=== PATIENT | male | born 1995 | race Caucasian/White ===

== ENCOUNTER → 2022-03-10 00:01 | Outpatient (BNVA) | payer OTHER, SELFPAY | PROVIDERS: Family Provider Nurse Practitioner Family; PCP Nurse Practitioner Family; Visit Provider Nurse Practitioner | DX: Z20.822 Contact with and (suspected) exposure to COVID-19 (principal); J02.9 Acute pharyngitis, unspecified | CPT/HCPCS: 87635 ==

== ENCOUNTER → 2023-11-30 10:35 | Outpatient (BNVA) | payer OTHER, SELFPAY | PROVIDERS: Family Provider Nurse Practitioner Family; PCP Nurse Practitioner Family; Visit Provider Nurse Practitioner Family | DX: R51.9 Headache, unspecified (principal); M54.2 Cervicalgia; Z79.899 Other long term (current) drug therapy; Z13.6 Encounter for screening for cardiovascular disorders; G89.29 Other chronic pain; Z86.19 Personal history of other infectious and parasitic diseases; R61 Generalized hyperhidrosis | CPT/HCPCS: 80053; 80061; 81003; 83036; 84443; 85025 ==

== ENCOUNTER 2023-12-13 12:04 | Outpatient (CLI) | payer OTHER, SELFPAY ==
--- NOTE | 2023-12-13 12:09 | XRR_ITS ---
PROCEDURE INFORMATION: Exam: XR Cervical Spine Exam date and time: 12/13/2023 12:20 PM Age: 28 years old Clinical indication: Pain; Patient HX: Headaches for 5 years; Additional info: R51.9 - headache, unspecified TECHNIQUE: Imaging protocol: Radiologic exam of the cervical spine. Views: 6 or more views. COMPARISON: No relevant prior studies available. FINDINGS: Bones/joints: Normal. No acute fracture. Normal alignment. No abnormal motion with flexion or extension. Soft tissues: Unremarkable. XR/XR cervical spine min 6V 72047 IMPRESSION: No acute findings.
== END 2023-12-13 12:05 | disposition home or self-care (01) ==
LOC: RAD 12:05
PROVIDERS: PCP Nurse Practitioner Family; Visit Provider Nurse Practitioner Family
DX: R51.9 Headache, unspecified (principal); M54.2 Cervicalgia; R31.9 Hematuria, unspecified
CPT/HCPCS: 72052; 81003; 87086; 88112

== ENCOUNTER → 2024-05-21 11:23 | Outpatient (BNVA) | payer OTHER, SELFPAY | PROVIDERS: PCP Nurse Practitioner Family; Visit Provider Nurse Practitioner Family | DX: K52.9 Noninfective gastroenteritis and colitis, unspecified (principal); R15.2 Fecal urgency | CPT/HCPCS: 82784; 83516 ==

== ENCOUNTER → 2024-05-26 09:20 | Outpatient (BNVA) | payer OTHER, SELFPAY | PROVIDERS: PCP Nurse Practitioner Family; Visit Provider Nurse Practitioner Family | DX: K52.9 Noninfective gastroenteritis and colitis, unspecified (principal); R15.2 Fecal urgency | CPT/HCPCS: 83630; 87177; 87209; 87328; 87329 ==

== ENCOUNTER 2024-09-01 08:32 | Day surgery (SDC) | payer OTHER, SELFPAY ==
[2024-09-01 08:48] VITALS: BMI 24.7
[2024-09-01] MEDS: sodium chloride 0.9% 500 ML 15 ML IV (09:05)
--- NOTE | 2024-09-01 09:05 | ANES.PREANE2 ---
Pre-Anesthetic Assessment Height/Weight: Height 1.75 m Weight 76.204 kg Preop Diagnosis: Fecal Incontinence Operation Date: 09/01/24 09:30 Proposed Procedures p Colonoscopy- 83222, G0105, R15.9(Not Applicable) - Momo Ruiz MD Familial anesthetic complications: none Was Beta Brendan taken within 24 hours: N/A Was Clonidine taken within 24 hours: N/A Last intake: Intake Last Liquid Date 08/31/24 Last Liquid Time 22:00 Last Solid Date 08/30/24 Last Solid Time 17:30 Social No alcohol and No tobacco Exam alert, oriented x 3, clear to auscultation bilaterally and regular rate & rhythm Airway Submandibular: within normal limits Cervical ROM: within normal limits Mallampati: Class II Dentition: full Comments: Comments: bearded Pulmonary None reported CV/HEM None reported None reported Hepatic None reported GI None reported Metabolic None reported Musc/skel None reported Neuropsych None reported Anesthetic Plan ASA status: 1 Anesthesia: MAC Medications/Allergies Home Medications Medication Instructions Recorded Confirmed Last Taken Type ketoconazole 2 % shampoo 1 applic topical PRN tinea 08/28/24 09/01/24 08/28/24 History versicolor ketoconazole 2 % topical cream 1 applic topical PRN 09/01/24 09/01/24 08/28/24 History Allergies Allergy/AdvReac Type Severity Reaction Status Date / Time No Known Allergies Allergy Verified 08/28/24 08:16 [facility] Anesthesia Medical History Incontinence of feces Chronic diarrhea Tick bite Fecal urgency Frequent stools Tinea versicolor Hyperhidrosis History of Lyme disease Medication management Cervical spine pain Headache Nasal dryness Environmental and seasonal allergies Social History Smoking and tobacco/nicotine status: never used tobacco/nicotine Second hand smoke exposure: No Alcohol intake: never Substance/Drug Use: never Current occupation: Heating cooling worker Data Anesthesia Cardiac Studies: No Data to Display
[2024-09-01 09:06] VITALS: BP 131/80; PULSE 79; RESP 16; TEMP 36.6; O2SAT 98
--- NOTE | 2024-09-01 09:13 | W.PM.OPSFHP ---
Same Day Surgery H&P Indication for Procedure/HPI DATE OF PROCEDURE: September 01, 2024 CHIEF COMPLAINT/INDICATIONFOR SURGICAL PROCEDURE: fecal incontinence PREOP DIAGNOSIS: Fecal Incontinence PLANNED PROCEDURE: Operation Date: 09/01/24 09:30 Proposed Procedures p Colonoscopy- 71902, G0105, R15.9(Not Applicable) - Momo Ruiz MD Medications/Allergies* Home Medications Medication Instructions Recorded Confirmed Type ketoconazole 2 % shampoo 1 applic topical PRN tinea 08/28/24 09/01/24 History versicolor ketoconazole 2 % topical cream 1 applic topical PRN 09/01/24 09/01/24 History Allergies/Adverse Reactions Allergy/AdvReac Type Severity Reaction Status Date / Time No Known Allergies Allergy Verified 08/28/24 08:16 Current Medications: Generic Name Dose Route Start Last Admin Trade Name Freq PRN Reason Stop Dose Admin Sodium Chloride 500 mls @ 15 mls/hr 09/01/24 08:37 09/01/24 09:05 Sodium Chloride 0.9% IV 09/02/24 08:36 15 mls/hr .Q24H PRN Administration COLONOSCOPY FLUIDS Pertinent History/Comorbid Conditions* Medical History (Updated 06/15/24 @ 20:15 by CARIE Black) Incontinence of feces Chronic diarrhea Tick bite Fecal urgency Frequent stools Tinea versicolor Hyperhidrosis History of Lyme disease Medication management Cervical spine pain Headache Nasal dryness Environmental and seasonal allergies Social History Smoking and tobacco/nicotine status: never used tobacco/nicotine Second hand smoke exposure: No Alcohol intake: never Substance/Drug Use: never Current occupation: Heating cooling worker Pertinent Exam Findings alert, oriented x 3, clear to auscultation bilaterally and regular rate & rhythm abdomen soft, nt, nd Recommendations Surgery/Procedure today Coding Level of Care Code Acute Code for Chg Fwd
[2024-09-01 09:31] VITALS: BP 115/78; PULSE 106; RESP 20; TEMP 36.2; O2SAT 97
[2024-09-01 09:36] VITALS: BP 114/80; PULSE 91; RESP 18; O2SAT 95
[2024-09-01 09:46] VITALS: BP 121/88; PULSE 74; RESP 20; O2SAT 96
--- NOTE | 2024-09-01 10:17 | ANE.PACU2 ---
Inpatient post-anesthesia follow up: Airway intact: Yes Vital signs: Temperature 97.1 F Pulse Rate 74 Respiratory Rate 20 Blood Pressure 121/88 Pulse Oximetry 96 Oxygen Delivery Me thod Room Air Oxygen Flow Rate Fraction of Inspir ed Oxygen Hydration adequate: Yes Nausea and vomiting: No Pain level: 1 Mental status: Baseline
== END 2024-09-01 10:17 | disposition home or self-care (01) ==
PROVIDERS: PCP Nurse Practitioner Family; Visit Provider Student in an Organized Health Care Education/Training Program
PROC: 0DJD8ZZ Inspection of Lower Intestinal Tract, Via Natural or Artificial Opening Endoscopic (ICD-10-PCS; CPT 45378; principal; 2024-09-01 09:30)
DX: R15.9 Full incontinence of feces (principal)
CPT/HCPCS: 45378; J2704; J3490; J7040

== ENCOUNTER 2024-10-17 11:47 | Outpatient (CLI) | payer OTHER, SELFPAY ==
--- NOTE | 2024-10-17 12:01 | XR_ITS ---
WS: [id number] Chest 2 views, 10/17/2024 Clinical Data: R05.3 - Chronic cough Comparison: None. Findings: No nodules, masses or effusions are seen. The heart is normal. The pulmonary vascularity is not increased. No pneumonia or pneumothorax is seen. XR/XR chest 2V* [id number] Impression: Negative chest.
== END 2024-10-17 11:48 | disposition home or self-care (01) ==
PROVIDERS: PCP Nurse Practitioner Family; Visit Provider Nurse Practitioner Family
DX: R05.3 Chronic cough (principal)
CPT/HCPCS: 71046

== ENCOUNTER 2025-01-01 17:07 | Inpatient (IN) | payer OTHER, SELFPAY ==
[2025-01-01] VITALS (7 sets, daily range): BP systolic 120–135; BP diastolic 80–90; PULSE 69–83; RESP 14–18; TEMP 36.8–36.9; O2SAT 96–100; BMI 22.8
--- NOTE | 2025-01-01 17:38 | XRR_ITS ---
PROCEDURE INFORMATION: Exam: XR Chest Exam date and time: 01/01/2025 5:38 PM Age: 29 years old Clinical indication: Cough and dyspnea; Additional info: Dyspnea/cough TECHNIQUE: Imaging protocol: Radiologic exam of the chest. Views: 1 view. COMPARISON: CR XR chest 2V* [id number] 10/17/2024 12:11 PM FINDINGS: Lungs: Lungs are clear. Pleural spaces: There is no pleural effusion or pneumothorax. Heart/Mediastinum: Cardiomediastinal contours are unremarkable. Bones/joints: Bones are unremarkable. XR/XR chest 1V portable [id number] IMPRESSION: No acute findings.
--- NOTE | 2025-01-01 17:42 | ED_ITS ---
Documented by User: Neal Loya DO 01/02/25 09:42 HPI - General Adult 2 General: Chief complaint: General Medical Stated complaint: muscle extertion Time Seen by Provider: 01/01/25 17:37 History of Present Illness: 29-year-old male who presents to the [facility] with complaints of dizziness nausea generally not feeling well feeling very achy particularly in his arms but in general all over. 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 Additionally he notes extreme weakness particularly in his arms. No major medical problems in the past he has not used large numbers of NSAIDs. He denies any hematemesis or coffee-ground emesis. No estefanía hematuria. No injury or trauma recently. Associated symptoms: Deny chest pain, dyspnea or rash Related Data Home Medications ?Medication ?Instructions ?Recorded ?Confirmed No Known Home Medications 01/02/2512/18 Allergies Allergy/AdvReac Type Severity Reaction Status Date / Time No Known Allergies Allergy Verified 10/17/24 08:47 Review of Systems 2 Const: Denies: fever(s) or chills Card: Denies: chest pain Resp: Denies: dyspnea GI: Denies: abdominal pain : Denies: dysuria, urinary frequency or urinary urgency Musc: Reports: muscle cramps and muscle weakness; Denies: neck pain or back pain Skin/Breast: Denies: rash PFSH ED 2 PFSH: Medical History Chronic cough Cough Incontinence of feces Chronic diarrhea Tick bite Fecal urgency Frequent stools Tinea versicolor Hyperhidrosis History of Lyme disease Medication management Cervical spine pain Headache Nasal dryness Environmental and seasonal allergies Social History Smoking and tobacco/nicotine status: never used tobacco/nicotine Second hand smoke exposure: No Alcohol intake: never Substance/Drug Use: never Current occupation: Heating cooling worker Physical Exam 2 Const: GENERAL APPEARANCE: cooperative ORIENTATION/CONSCIOUSNESS: Yes awake, Yes oriented to person, Yes oriented to place and Yes oriented to time HENMT: COMMON NORMALS: normocephalic, atraumatic and hearing grossly normal bilaterally HEAD & SCALP: normocephalic and atraumatic Resp: COMMON NORMALS: normal respiratory effort, No retractions, No use of accessory muscles and clear to auscultation bilaterally AUSCULTATION: clear to auscultation bilaterally Cardio: COMMON NORMALS: regular rate, regular rhythm and No murmurs present (Cardio) RATE: regular rate RHYTHM: regular rhythm GI: COMMON NORMALS: Soft to palpation and No hepatosplenomegaly present A USCULTATION: Yes normoactive bowel sounds PALPATION: Yes Soft to palpation, No Tenderness to palpation present (GI), No Guarding due to palpation present (GI) and Yes No hepatosplenomegaly present Extremity: COMMON NORMALS: normal to inspection, capillary refill normal, no clubbing, cyanosis or edema, no calf tenderness and no pedal edema Neuro: SENSORIUM/ORIENTATION: Yes oriented to person, Yes oriented to place and Yes oriented to time Skin: COMMON NORMALS: no rashes or lesions noted GENERAL SKIN EXAM: no rashes or lesions noted Course 2 Vital Signs: Vital signs: Vital Signs Temperature 97.8 F 01/02/25 07:56 Pulse Rate 79 01/02/25 07:56 Respiratory Rate 17 01/02/25 07:56 Blood Pressure 115/74 01/02/25 07:56 Pulse Oximetry 99 01/02/25 07:56 Oxygen Delivery Az th Room Air 01/02/25 07:56 MDM - General Adult Medical Decision Making Care signed out to Dr. Silva at change of shift. See final notes for diagnosis and disposition. Patient care transitioned to oh at shift change. Awaiting lab work. Chest x- ray was negative. No leukocytosis. No anemia. No renal failure. BUN and creatinine are 14 and 0.9. Liver enzymes are elevated at 920 and 269. CK is greater than 37,000. Transaminitis likely secondary to the rhabdomyolysis. Consultation: I spoke with Dr. Hill with nephrology who is consulting on the patient. He recommends after the 2 L normal saline in the emergency room starting at 250 mL/h bicarb drip and giving 20 mg of IV Lasix. Consultation: I spoke with Dr. Hurst who agrees to admission. We are going to admit to the stepdown. Assessment and plan: Rhabdomyolysis Transaminitis ?2 L normal saline bolus and 20 mg IV Lasix in the emergency room -I discussed the patient with the hospitalist on-call who is admitting the patient. - Discussed findings and plan with patient. Answered any questions. - All laboratory values were reviewed and interpreted personally by myself, the ER physician - All imaging was reviewed and interpreted personally by myself, the ER physician. - Evaluation and treatment of this problem were appropriate in the emergency setting Lab Data 01/02/25 03:53 01/02/25 03:53 Radiology Impressions Chest X-Ray 01/01/25 17:38 IMPRESSION: No acute findings. Laboratory Results WBC 7.08 10^3/uL (3.29-11.43) 01/01/25 17:33 RBC 5.15 10^6/uL (3.85-5.65) 01/01/25 17:33 Hgb 16.40 g/dL (11.27-16.99) 01/01/25 17:33 Hct 45.1 % (37-53) 01/01/25 17:33 MCV 87.6 fl (82-101) 01/01/25 17:33 MCH 31.8 pg (27-33) 01/01/25 17:33 MCHC 36.4 g/dL (30-55) 01/01/25 17:33 RDW 11.1 % (12.1-15.1) L 01/01/25 17:33 Plt Count 268 10^3/cmm (157-399) 01/01/25 17:33 MPV 9.6 fL (7.4-10.4) 01/01/25 17:33 Neut % (Auto) 45.0 % 01/01/25 17:33 Lymph % (Auto) 34.9 % 01/01/25 17:33 [place] % (Auto) 18.9 % 01/01/25 17:33 Eos % (Auto) 0.7 % 01/01/25 17:33 Baso % (Auto) 0.4 % 01/01/25 17:33 Neut # (Auto) 3.18 10^3/uL (1.8-7.7) 01/01/25 17:33 Lymph # (Auto) 2.5 10^3/uL (0.8-4.8) 01/01/25 17:33 [place] # (Auto) 1.3 10^3/uL (0.2-0.9) H 01/01/25 17:33 Eos # (Auto) 0.1 10^3/uL (0.0-0.8) 01/01/25 17:33 Baso # (Auto) 0.0 10^3/uL (0.0-0.1) 01/01/25 17:33 Nucleated RBC % (auto) 0 % 01/01/25 17:33 Nucleated RBCs # 0.0 /100WBC 01/01/25 17:33 PT 12.90 SECONDS (12.1-14.9) 01/01/25 17:33 INR 0.91 (0.8-1.2) 01/01/25 17:33 APTT 32.4 SECONDS (23.9-36.7) 01/01/25 17:33 Sodium 139 mmol/L (136-145) 01/01/25 17:33 Potassium 3.6 mmol/L (3.5-5.1) 01/01/25 17:33 Chloride 100 mmol/L (98-107) 01/01/25 17:33 Carbon Dioxide 24 mmol/L (22-29) 01/01/25 17:33 Anion Gap 18.6 (5-19) 01/01/25 17:33 BUN 14 mg/dL (6-20) 01/01/25 17:33 Creatinine 0.9 mg/dL (0.7-1.2) 01/01/25 17:33 GFR Calculation 99.1 mL/min (90-130) 01/01/25 17:33 Glucose 86 mg/dL (65-115) 01/01/25 17:33 Calculated Osmolality 288 mOsm/kg (285-295) 01/01/25 17:33 Calcium 9.1 mg/dL (8.5-10.5) 01/01/25 17:33 Total Bilirubin 0.4 mg/dL (0.15-1.2) 01/01/25 17:33 AST 920 U/L (0-40) H 01/01/25 17:33 ALT 269 U/L (0-41) H 01/01/25 17:33 Alkaline Phosphatase 61 U/L (40-130) 01/01/25 17:33 Creatine Kinase > 42316 U/L (39-308) H* 01/01/25 17:33 Total Protein 7.6 g/dL (6.6-8.7) 01/01/25 17:33 Albumin 4.7 g/dL (3.5-5.2) 01/01/25 17:33 Globulin 2.9 g/dL (1.3-4.6) 01/01/25 17:33 Urine Color Yellow (Yellow) 01/01/25 17:31 Urine Appearance Clear (CLEAR) 01/01/25 17:31 Urine pH Not Reportable 01/01/25 17:31 Ur Specific [place] Not Reportable 01/01/25 17:31 Urine Protein Not Reportable 01/01/25 17:31 Urine Glucose (UA) Not Reportable 01/01/25 17:31 Urine Ketones Not Reportable 01/01/25 17:31 Urine Blood Not Reportable 01/01/25 17:31 Urine Nitrate Not Reportable 01/01/25 17:31 Urine Bilirubin Not Reportable 01/01/25 17:31 Urine Urobilinogen Not Reportable 01/01/25 17:31 Ur Leukocyte Esterase Not Reportable 01/01/25 17:31 Urine RBC None /hpf (0-2) 01/01/25 17:31 Urine WBC None /hpf (0-5) 01/01/25 17:31 Ur Squamous Epith Cells None /hpf (0-5) 01/01/25 17:31 Amorphous Sediment Not Reportable 01/01/25 17:31 Urine Bacteria None /hpf (NONE) 01/01/25 17:31 Urine Mucus None /hpf 01/01/25 17:31 Urine Opiates Screen Negative ng/mL (Negative) 01/01/25 17:31 Ur Barbiturates Screen Negative ng/mL (Negative) 01/01/25 17:31 Ur Phencyclidine Scrn Negative ng/mL (Negative) 01/01/25 17:31 Ur Amphetamines Screen Negative ng/mL (Negative) 01/01/25 17:31 U Benzodiazepines Scrn Negative ng/mL (Negative) 01/01/25 17:31 Urine Cocaine Screen Negative ng/mL (Negative) 01/01/25 17:31 U Marijuana (THC) Screen Negative ng/mL (Negative) 01/01/25 17:31 Discharge Plan Discharge Patient Disposition: Admitted As Inpatient Admit Provider: Reema Hurst Clinical Impression: Rhabdomyolysis, Transaminitis, Dehydration Condition: Stable Coding Level of Care Code ED Furniture Polisher for Mirlande Fwd Documented by User: Estefany Silav MD 01/01/25 19:36 HPI - General Adult 2 General: Chief complaint: General Medical Stated complaint: muscle extertion Time Seen by Provider: 01/01/25 17:37 History of Present Illness: 29-year-old man with no significant past medical issues who presents the emergency room with dizziness, nauseous and fatigue. He noted dark urine. He says that on Sunday he was not urinating as much as he had been. 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 No altered mental status. No fevers. No abdominal pain. Related Data Home Medications ?Medication ?Instructions ?Recorded ?Confirmed No Known Home Medications 01/02/2512/18 Allergies Allergy/AdvReac Type Severity Reaction Status Date / Time No Known Allergies Allergy Verified 10/17/24 08:47 Review of Systems 2 Narrative: Constitutional symptoms: Negative except as documented in HPI. Skin symptoms: Negative except as documented in HPI. Eye symptoms: Negative except as documented in HPI. ENMT symptoms: Negative except as documented in HPI. Respiratory symptoms: Negative except as documented in HPI. Cardiovascular symptoms: Negative except as documented in HPI. Gastrointestinal symptoms: Negative except as documented in HPI. Genitourinary symptoms: Negative except as documented in HPI. Musculoskeletal symptoms: Negative except as documented in HPI. Neurologic symptoms: Negative except as documented in HPI. Psychiatric symptoms: Negative except as documented in HPI. Endocrine symptoms: Negative except as documented in HPI. PFSH ED 2 PFSH: Medical History Chronic cough Cough Incontinence of feces Chronic diarrhea Tick bite Fecal urgency Frequent stools Tinea versicolor Hyperhidrosis History of Lyme disease Medication management Cervical spine pain Headache Nasal dryness Environmental and seasonal allergies Social History Smoking and tobacco/nicotine status: never used tobacco/nicotine Second hand smoke exposure: No Alcohol intake: never Substance/Drug Use: never Current occupation: Heating cooling worker Physical Exam 2 Narrative: EXAM NARRATIVE: General: Alert, no acute distress. Skin: Warm, dry. Head: Normocephalic, atraumatic. Neck: Supple, trachea midline. Eye: Extraocular movements are intact. Ears, nose, mouth and throat: mucosa moist. Cardiovascular: Regular, Normal peripheral perfusion. Respiratory: Lungs are clear to auscultation, respirations are non-labored, breath sounds are equal, Symmetrical chest wall expansion. Gastrointestinal: Soft, Nontender, Non distended Musculoskeletal: Normal ROM, no deformity. Neurological: Alert and oriented, No focal neurological deficit observed. Psychiatric: Cooperative, appropriate mood & affect. Course 2 Vital Signs: Vital signs: Vital Signs Temperature 97.8 F 01/02/25 07:56 Pulse Rate 79 01/02/25 07:56 Respiratory Rate 17 01/02/25 07:56 Blood Pressure 115/74 01/02/25 07:56 Pulse Oximetry 99 01/02/25 07:56 Oxygen Delivery Az thod Room Air 01/02/25 07:56 MDM - General Adult Medical Decision Making Patient care transitioned to oh at shift change. Awaiting lab work. Chest x- ray was negative. No leukocytosis. No anemia. No renal failure. BUN and creatinine are 14 and 0.9. Liver enzymes are elevated at 920 and 269. CK is greater than 37,000. Transaminitis likely secondary to the rhabdomyolysis. Consultation: I spoke with Dr. Hill with nephrology who is consulting on the patient. He recommends after the 2 L normal saline in the emergency room starting at 250 mL/h bicarb drip and giving 20 mg of IV Lasix. Consultation: I spoke with Dr. Hurst who agrees to admission. We are going to admit to the stepdown. Assessment and plan: Rhabdomyolysis Transaminitis ?2 L normal saline bolus and 20 mg IV Lasix in the emergency room -I discussed the patient with the hospitalist on-call who is admitting the patient. - Discussed findings and plan with patient. Answered any questions. - All laboratory values were reviewed and interpreted personally by myself, the ER physician - All imaging was reviewed and interpreted personally by myself, the ER physician. - Evaluation and treatment of this problem were appropriate in the emergency setting Lab Data 01/02/25 03:53 01/02/25 03:53 Radiology Impressions Chest X-Ray 01/01/25 17:38 IMPRESSION: No acute findings. Laboratory Results WBC 7.08 10^3/uL (3.29-11.43) 01/01/25 17:33 RBC 5.15 10^6/uL (3.85-5.65) 01/01/25 17:33 Hgb 16.40 g/dL (11.27-16.99) 01/01/25 17:33 Hct 45.1 % (37-53) 01/01/25 17:33 MCV 87.6 fl (82-101) 01/01/25 17:33 MCH 31.8 pg (27-33) 01/01/25 17: MCHC 36.4 g/dL (30-55) 01/01/25 17:33 RDW 11.1 % (12.1-15.1) L 01/01/25 17:33 Plt Count 268 10^3/cmm (157-399) 01/01/25 17: MPV 9.6 fL (7.4-10.4) 01/01/25 17:33 Neut % (Auto) 45.0 % 01/01/25 17:33 Lymph % (Auto) 34.9 % 01/01/25 17:33 [place] % (Auto) 18.9 % 01/01/25 17:33 Eos % (Auto) 0.7 % 01/01/25 17:33 Baso % (Auto) 0.4 % 01/01/25 17:33 Neut # (Auto) 3.18 10^3/uL (1.8-7.7) 01/01/25 17:33 Lymph # (Auto) 2.5 10^3/uL (0.8-4.8) 01/01/25 17:33 [place] # (Auto) 1.3 10^3/uL (0.2-0.9) H 01/01/25 17:33 Eos # (Auto) 0.1 10^3/uL (0.0-0.8) 01/01/25 17:33 Baso # (Auto) 0.0 10^3/uL (0.0-0.1) 01/01/25 17:33 Nucleated RBC % (auto) 0 % 01/01/25 17:33 Nucleated RBCs # 0.0 /100WBC 01/01/25 17:33 PT 12.90 SECONDS (12.1-14.9) 01/01/25 17:33 INR 0.91 (0.8-1.2) 01/01/25 17:33 APTT 32.4 SECONDS (23.9-36.7) 01/01/25 17:33 Sodium 139 mmol/L (136-145) 01/01/25 17:33 Potassium 3.6 mmol/L (3.5-5.1) 01/01/25 17:33 Chloride 100 mmol/L (98-107) 01/01/25 17:33 Carbon Dioxide 24 mmol/L (22-29) 01/01/25 17:33 Anion Gap 18.6 (5-19) 01/01/25 17:33 BUN 14 mg/dL (6-20) 01/01/25 17:33 Creatinine 0.9 mg/dL (0.7-1.2) 01/01/25 17:33 GFR Calculation 99.1 mL/min (90-130) 01/01/25 17:33 Glucose 86 mg/dL (65-115) 01/01/25 17:33 Calculated Osmolality 288 mOsm/kg (285-295) 01/01/25 17:33 Calcium 9.1 mg/dL (8.5-10.5) 01/01/25 17:33 Total Bilirubin 0.4 mg/dL (0.15-1.2) 01/01/25 17:33 AST 920 U/L (0-40) H 01/01/25 17:33 ALT 269 U/L (0-41) H 01/01/25 17:33 Alkaline Phosphatase 61 U/L (40-130) 01/01/25 17:33 Creatine Kinase > 16506 U/L (39-308) H* 01/01/25 17:33 Total Protein 7.6 g/dL (6.6-8.7) 01/01/25 17:33 Albumin 4.7 g/dL (3.5-5.2) 01/01/25 17:33 Globulin 2.9 g/dL (1.3-4.6) 01/01/25 17:33 Urine Color Yellow (Yellow) 01/01/25 17:31 Urine Appearance Clear (CLEAR) 01/01/25 17:31 Urine pH Not Reportable 01/01/25 17:31 Ur Specific [place] Not Reportable 01/01/25 17:31 Urine Protein Not Reportable 01/01/25 17:31 Urine Glucose (UA) Not Reportable 01/01/25 17:31 Urine Ketones Not Reportable 01/01/25 17:31 Urine Blood Not Reportable 01/01/25 17:31 Urine Nitrate Not Reportable 01/01/25 17:31 Urine Bilirubin Not Reportable 01/01/25 17:31 Urine Urobilinogen Not Reportable 01/01/25 17:31 Ur Leukocyte Esterase Not Reportable 01/01/25 17:31 Urine RBC None /hpf (0-2) 01/01/25 17:31 Urine WBC None /hpf (0-5) 01/01/25 17:31 Ur Squamous Epith Cells None /hpf (0-5) 01/01/25 17:31 Amorphous Sediment Not Reportable 01/01/25 17:31 Urine Bacteria None /hpf (NONE) 01/01/25 17:31 Urine Mucus None /hpf 01/01/25 17:31 Urine Opiates Screen Negative ng/mL (Negative) 01/01/25 17:31 Ur Barbiturates Screen Negative ng/mL (Negative) 01/01/25 17:31 Ur Phencyclidine Scrn Negative ng/mL (Negative) 01/01/25 17:31 Ur Amphetamines Screen Negative ng/mL (Negative) 01/01/25 17:31 U Benzodiazepines Scrn Negative ng/mL (Negative) 01/01/25 17:31 Urine Cocaine Screen Negative ng/mL (Negative) 01/01/25 17:31 U Marijuana (THC) Screen Negative ng/mL (Negative) 01/01/25 17:31 All radiology interpretation(s) finalized by discharge Discharge Plan Discharge Patient Disposition: Admitted As Inpatient Admit Provider: Reema Hurst Clinical Impression: Rhabdomyolysis, Transaminitis, Dehydration Condition: Stable Coding Level of Care Code ED Furniture Polisher for Mirlande [place]
--- NOTE | 2025-01-01 17:50 | ECG_ITS ---
[facility]: [facility]01 Pat Name: Mau Quevedo Department: Room: Gender: Male Low Voltage Technician: : 1995 Requested By: Neal Allen Order Number: [id number] Lyle MD: KYLE NASH Measurements Intervals [place] Rate: 76 P: 52 AK: 193 QRS: 12 QRSD: 80 T: 47 QT: 360 QTc: 407 Interpretive Statements SINUS RHYTHM No previous ECG available for comparison Electronically Signed On 01-01-2025 23:26:35 CDT by KYLE NASH [email or web address]
[2025-01-01 17:51] LABS: Basophils % 0.4 %; Eosinophils # 0.1 10^3/uL (0.0-0.8); Eosinophils % 0.7 %; Hematocrit 45.1 % (37-53); Lymphocytes # 2.5 10^3/uL (0.8-4.8); Lymphocytes % 34.9 %; Mean Corpuscular HGB Conc 36.4 g/dL (30-55); Mean Corpuscular Hemoglobin 31.8 pg (27-33); Mean Corpuscular Volume 87.6 fl (82-101); Mean Platelet Volume 9.6 fL (7.4-10.4); Monocytes # 1.3 10^3/uL (0.2-0.9); Monocytes % 18.9 %; Neutrophils # 3.18 10^3/uL (1.8-7.7); Nucleated Red Blood Cells % 0 %; Platelet Count 268 10^3/cmm (157-399); Red Blood Count 5.15 10^6/uL (3.85-5.65); Red Cell Distribution Width 11.1 % (12.1-15.1); White Blood Count 7.08 10^3/uL (3.29-11.43)
[2025-01-01] MEDS: sodium chloride 0.9% 1,000 ML 999 ML IV ×2 (17:57→19:43)
[2025-01-01 18:01] LABS: Add Urine Microscopic? YES; Urine Appearance Clear (CLEAR); Urine Color Yellow (Yellow)
[2025-01-01 18:03] LABS: Add Urine Culture? No
[2025-01-01 18:13] LABS: Alanine Aminotransferase 269 U/L (0-41); Albumin Level 4.7 g/dL (3.5-5.2); Alkaline Phosphatase 61 U/L (40-130); Anion Gap 18.6 (5-19); Blood Urea Nitrogen 14 mg/dL (6-20); Calcium 9.1 mg/dL (8.5-10.5); Carbon Dioxide 24 mmol/L (22-29); Chloride 100 mmol/L (98-107); Globulin 2.9 g/dL (1.3-4.6); Glomerular Filtration Rate 99.1 mL/min (90-130); Glucose 86 mg/dL (65-115); Osmolality Calculated 288 mOsm/kg (285-295); Potassium 3.6 mmol/L (3.5-5.1); Sodium 139 mmol/L (136-145); Total Bilirubin 0.4 mg/dL (0.15-1.2); Total Protein 7.6 g/dL (6.6-8.7)
[2025-01-01 18:56] LABS: Aspartate Amino Transferase 920 U/L (0-40)
[2025-01-01 18:59] LABS: Creatine Phosphokinase > 37618 U/L (39-308)
--- NOTE | 2025-01-01 19:36 | PM.HP ---
Providers/Chief Complaint Admitting Physician: Reema Hurst I Primary Care Provider: CAIRE Hooker Chief Complaint: muscle extertion History of Present Illness Mau Quevedo is a 29 year old male w/ no past medical history who presents to the ED today 01/01/2025 w/ complaints of b/l arm & forearm pain, generalized weakness, dizziness, nausea, & brown/tea colored urine, after heavy exercise on 12/29/2024. 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 He Has a beach trip coming up with his family on the weekend of February 20, 2025, and he decided to start getting in shape. He went to the gym on Friday 12/29, and did mostly arm workouts and ran a little over a mile on the treadmill. The patient started feeling is b/l arm and forearm hurt especially when he attempted to extend his arm. The next morning, he felt dizzy,nauseous, generalized weakness, but especially in his arms. Despite drinking a lot of water, he only urinated 2-3times. He also continued to feel the pain and stiffness in his b/l arms, and it was worse. On Sunday, when he urinated, it was brown & tea colored. He went on [employer] and input his symptoms, and [employer] told him that he had Rhadomyolysis. Since he was on the road, he told his immediate passenger car cleaning supervisor about his symptoms, who recommended that he take care of himself. He drove home and presented to the ED. In addition to the aforementioned symptoms, he endorses, chills, light headedness. he complains of b/l lower back pain that worsens towards the end of his urine stream. He denies urinary urgency/frequency, dysuria, hematuria. He denies fever, CP, palpitations, SOB. In the ED, the patient's vital signs were within normal limits. The patient's labs were significant for no leukocytosis, transaminitis, and a CK of >37,000. His UA was negative for UTI or microscopic hematuria, and his UDS was negative. The patient was given 2 L NS bolus in the ED and admitted. Upon accepting the patient, given the level of his rhabdomyolysis, I spoke with the ED physician, about consulting the Rotary Veneer Machine Operator, so the auto radiator specialist was consulted. The auto radiator specialist recommended that the patient be given a 20 mg IV dose of furosemide and that the patient be started on a bicarb drip at 250 cc/h. Review of Systems Const: Reports: chills, body aches and malaise; Denies: fever(s) Eyes: Denies: change in vision ENMT: Reports: ear or mastoid pain (R. ear pain around 5pm today that occurs with swallowing - resolved), nasal discharge (that began on Sunday morning), nasal congestion (that began on Sunday), post nasal drip (worse on the R. side) and other (sore throat, sneezing); Denies: ear discharge Card: Reports: lightheadedness; Denies: chest pain, palpitations or syncope Resp: Denies: dyspnea, productive cough, non-productive cough or wheezing GI: Reports: nausea; Denies: abdominal pain, vomiting, diarrhea, constipation, hematochezia or melena : Reports: difficulty urinating, dysuria and urinary hesitancy; Denies: urinary frequency or urinary urgency Musc: Reports: other (myalgias in the b/l arms and forearms, b/l lower back) Skin/Breast: Denies: rash or new lesions Neuro: Reports: dizziness; Denies: headache(s) Psych: Denies: anxiety, depression, auditory hallucinations, suicidal ideation or homicidal ideation Endo: Denies: cold intolerance or heat intolerance Chas/Lymph: Reports: other (hx of epistaxis); Denies: easy bruising or easy bleeding Medications/Allergies Home Medications ?Medication ?Instructions ?Recorded ?Confirmed ?Last Taken ?Type cetirizine 10 mg tablet (All Day 10 mg PO DAILY 30 days #30 tabs 09/19/24 10/17/24 Unknown Rx Allergy (cetirizine)) famotidine 20 mg tablet (Pepcid) 20 mg PO DAILY 30 days #30 tabs 09/23/24 10/17/24 Unknown Rx benzonatate 100 mg capsule 100 mg PO TID #60 caps 10/04/24 10/17/24 Unknown Rx albuterol sulfate 90 mcg/actuation 1 inh inhalation Q4H PRN shortness 10/17/24 10/17/24 Unknown Rx aerosol inhaler (Ventolin HFA) of breath or wheezing #8.5 grams azithromycin 250 mg tablet See Rx Instructions PO .COMPLEX #6 10/17/24 10/17/24 Unknown Rx tabs pseudoephedrine HCl 30 mg tablet 30 mg PO Q6H PRN nasal congestion 10/17/24 10/17/24 Unknown Rx (Sudafed) 15 days #30 tabs Allergies Allergy/AdvReac Type Severity Reaction Status Date / Time No Known Allergies Allergy Verified 10/17/24 08:47 PFSH Acute PFSH: Medical History (Updated 01/02/25 @ 00:12 by Reema Hurst MD) Chronic cough Cough Incontinence of feces Chronic diarrhea Tick bite Fecal urgency Frequent stools Tinea versicolor Hyperhidrosis History of Lyme disease Medication management Cervical spine pain Headache Nasal dryness Environmental and seasonal allergies Social History Smoking and tobacco/nicotine status: never used tobacco/nicotine Second hand smoke exposure: No Alcohol intake: never Substance/Drug Use: never Current occupation: Heating cooling worker Vitals/I&O/Wt Last Vital Signs Temp 98.2 F 01/01/25 17:13 Pulse 69 01/01/25 19:26 Resp 14 01/01/25 19:26 BP 135/83 01/01/25 19:26 Pulse Ox 100 01/01/25 19:26 O2 Del Method Room Air 01/01/25 19:26 Weight last 48 hrs Weight 68.039 kg Physical Exam Const: GENERAL APPEARANCE: cooperative and comfortable ORIENTATION/CONSCIOUSNESS: Yes awake, Yes oriented to person, Yes oriented to place and Yes oriented to time HENMT: HEAD & SCALP: normocephalic and atraumatic NOSE: Normal external nose present EXTERNAL EAR: Yes external ears normal MOUTH: Normal oral and palatal mucosa present THROAT: posterior oropharynx normal Eye: CONJUNCTIVA: Yes conjunctivae normal PUPIL: Yes Equal, round and reactive pupils present EOM: No EOM abnormal Neck/C-Spine: THYROID: Thyroid normal CAROTIDS: No bruit CERVICAL SPINE: Yes cervical ROM normal Lymph: OTHER: no cervical or supraclavicular LAD Resp: OTHER: CTAB w/ no m/r/g Cardio: OTHER: RRR, no m/r/g or clicks, 2+ radial and DP pulses, no carotid bruit appreciated GI: OTHER: BS+, NT, ND, no rigidity, no guarding, no rebound tenderness, or hepatosplenomegaly. Back/Pelvis: OTHER: mild L. lower flank tenderness Extremity: GENERAL: No calf tenderness, No clubbing and No cyanosis Neuro: CRANIAL NERVES: Yes CN normal except as noted SPEECH: speech normal GAIT: Yes Normal gait present MOTOR EXAM: 5/5 motor strength present throughout Psych: APPEARANCE: Yes grossly normal ATTITUDE: Yes calm and Yes engaged ACTIVITY/MOTOR BEHAVIOR: Yes appropriate eye contact SPEECH: Yes normal speech MOOD & AFFECT: Yes euthymic mood THOUGHT PROCESS: Normal thought process present THOUGHT CONTENT: Yes Normal thought content present ATTENTION/CONCENTRATION: Yes attention grossly intact MEMORY/COGNITION: Yes memory grossly intact Skin: GENERAL SKIN EXAM: no rashes or lesions noted Data 01/01/25 17:33 01/01/25 17:33 A&P Assessment and plan (1) Exertional rhabdomyolysis: (2) Transaminitis: Plan Mau Lucero Sae is a 29 year old male w/ no past medical history who presents to the ED today 01/01/2025 w/ complaints of b/l arm & forearm pain, generalized weakness, dizziness, nausea, & brown/tea colored urine, after heavy exercise on 12/29/2024. The patient is being admitted for exertional rhabdomyolysis, with [place] initial CK of >[address]796. # Severe Rhabdomyolysis - s/p 2L NS in the ED. Another 1L NS ordered on admission. - Nephrology consulted - involvement appreciated. F/u studies ordered by [employer]ary Veneer Machine Operator. - Per Nephrology recs, Lasix 20meq IV x 1 and continuous 150mEQ bicarb drip at 250cc/hr ordered. - Pain control w/ Acetamino #Transaminitis: likely due to ischemia from dehydration - Will monitor and order further studies as appropriate. #Possible seasonal Allergies - Benadryl x 1. Loratadine daily ordered. - I attemepted to evaluate his tympanic membranes b/l because given his complaint of a sore throat that resulted in R. sided ear pain whenever he swallowed, but the otoscope was not charged. DVT ppx: Lovenox PDMP PDMP Reviewed: Not Reviewed Attestations Medical Necessity Statement*: The patient will need to be hospitalized for >2 midnights for his severe rhabdomyolysis, requiring the involvement of the auto radiator specialist. I have never seen rhabdomyolysis this severe. Premature discharge endangers the patient. Coding Level of Care Code 28395 High Time for a total of 80 minutes, includes reviewing past or interval history, examining/interviewing patient, placing orders, counseling patient/family/other support, updating patient/family/other support, discussing plan of care with staff, communicating with other healthcare providers, documenting encounter and coordinating care Diagnoses Exertional rhabdomyolysis M62.82 Transaminitis R74.01
[2025-01-01] MEDS: sodium bicarbonate 150 MEQ in dextrose 5% 1,000 ML 250 MEQ IV (19:42)
[2025-01-01 21:01] LABS: INR 0.91 (0.8-1.2)
[2025-01-01 21:02] LABS: Partial Thromboplastin Time 32.4 SECONDS (23.9-36.7)
[2025-01-01 21:17] LABS: Amphetamines Screen Urine Negative (Negative); Barbiturates Screen Urine Negative (Negative); Benzodiazepines Screen Urine Negative (Negative); Cocaine Screen Urine Negative (Negative); Opiate Screen Urine Negative (Negative); PCP Screen Urine Negative (Negative); THC Screen Urine Negative (Negative)
--- NOTE | 2025-01-01 21:35 | P.CONIM_ITS ---
Providers/Reason For Consult 2 Consulting Physician/Specialty*: marni pearce md / telenphrology Reason for Consult*: rhabdomyolysis Requesting Physician: Dr Reema Hurst Attending Physician: Reema Hurst MD Primary Care Provider: CARIE Hooker History of Present Illness History of Present Illness Mau Quevedo is a 29 year old male who exercised on 12/29/24. since then he has muscle weakness and oligurix and brown. he says he drinks fluids okay. no n/v/f/c/gramajo/d/leg pains Review of Systems 2 Narrative: weak, arm pain, dark urine, nausea, headaches. denies NSAID use Medications/Allergies Home Medications ?Medication ?Instructions ?Recorded ?Confirmed ?Last Taken ?Type cetirizine 10 mg tablet (All Day 10 mg PO DAILY 30 day s #30 tabs 09/19/24 10/17/24 Unknown Rx Allergy (cetirizine)) famotidine 20 mg tablet (Pepcid) 20 mg PO DAILY 30 day s #30 tabs 09/23/24 10/17/24 Unknown Rx benzonatate 100 mg capsule 100 mg PO TID #60 caps 09/2010/17/24 Unknown Rx albuterol sulfate 90 mcg/actuation 1 inh inhalation Q4 H PRN shortness 10/17/24 10/17/24 Unknown Rx aerosol inhaler (Ventolin HFA) of breath or wheezing # 8.5 grams azithromycin 250 mg tablet See Rx Instructions PO .COM PLEX #6 10/17/24 10/17/24 Unknown Rx tabs pseudoephedrine HCl 30 mg tablet 30 mg PO Q6H PRN nasa l congestion 10/17/24 10/17/24 Unknown Rx (Sudafed) 15 days #30 tabs Allergies Allergy/AdvReac Type Severity Reaction Status Date / Time No Known Allergies Allergy Verified 10/17/24 08:47 Current Medications Generic Name Dose Route Start Last Admin Trade Name Freq PRN Reason Stop Dose Admin Sodium Bicarbonate 150 meq/ 1,150 mls @ 250 mls/hr 01/01/25 19:32 01/01/25 19:42 Dextrose IV 250 mls/hr .Q4H36M CHRISTOPHER Administration PFSH Acute 2 PFSH: Medical History (Updated 05/15/25 @ 19:36 by Estefany Silva MD) Chronic cough Cough Incontinence of feces Chronic diarrhea Tick bite Fecal urgency Frequent stools Tinea versicolor Hyperhidrosis History of Lyme disease Medication management Cervical spine pain Headache Nasal dryness Environmental and seasonal allergies Social History Smoking and tobacco/nicotine status: never used tobacco/nicotine Second hand smoke exposure: No Alcohol intake: never Substance/Drug Use: never Current occupation: Heating cooling worker Vitals/I&O/Wt Last Vital Signs Temp 98.2 F 01/01/25 17:13 Pulse 77 01/01/25 20:14 Resp 18 01/01/25 20:14 BP 130/81 01/01/25 20:14 Pulse Ox 100 01/01/25 20:14 O2 Del Method Room Air 01/01/25 20:14 01/01/25 01/01/25 01/01/25 06:59 14:59 22:59 Output Total 600 / 600 Balance -600 / -600 Weight last 48 hrs Weight 68.039 kg Physical Exam 2 Narrative: VSS NARD in bed heent- nca/t, eomi neck supple lungs clear heart reg no rub abdomen soft, + bs ext no edema, tender arms neuro a,a, o x3 Data 01/01/25 17:33 01/01/25 17:33 A&P Assessment and plan (1) Rhabdomyolysis: 29 year old man w/ rhabdomyolysis 1. rhabdomyolysis- assumed from sports. Rhabdomyolysis is characterized clinically by the triad of myalgias, muscle weakness, and red to brown urine due to myoglobinuria -monitor for compartment syndrome -he denies substance abuse. will send urine toxicology -he denies using colchicine or statins -Acute viral infections associated with rhabdomyolysis include influenza A and B, coxsackievirus, Loretta-Sherwood, herpes simplex, parainfluenza, adenovirus, echovirus, HIV, and cytomegalovirus. The most common viral etiologies of rhabdomyolysis are influenza and HIV. -Inflammatory myopathies, dermatomyositis and polymyositis can cause rhabdomyolysis recommendation- fluids, if not having UOP of 100 ml/hr then give lasix. replace k. monitor electrolytes every 6 hrs basic serologies, hep c, hiv, hep b ab ordered seen and examined using A/V equipment w/ aide of nurse pt consented to telehealth visit Plan see above PDMP PDMP Reviewed: Not Reviewed Consult Attestations 2 Medical Necessity Statement: symptomatic rhabdomyolysis Time Spent in Patient Care: Greater than 35 minutes (>than 50% of time spent in counselling and/or direct pt care on unit) . Coding Level of Care Code Acute Code for [facility] Diagnoses Rhabdomyolysis M62.82
[2025-01-01] MEDS: sodium chloride 0.9% 1,000 ML 500 ML IV (21:44)
[2025-01-01] MEDS: potassium chloride ER 20 mEq Tablet 40 MEQ PO (22:28)
[2025-01-01] MEDS: FUROsemide 10 mg/mL SDV 2mL 20 MG IVP (22:28)
[2025-01-01] MEDS: enoxaparin 40 mg/0.4 mL Syringe SUBCUT (22:28)
[2025-01-01] MEDS: sennosides 8.6 mg Tablet 17.2 MG PO (22:29)
--- NOTE | 2025-01-01 22:54 | PC.NURSE ---
Per Dr. Hurst pause bicarb drip and finish bolusing the NS.
[2025-01-01 23:40] LABS: Bilirubin Urine Negative (Negative); Blood Urine Negative (Negative); Glucose Urine UA Negative (Normal); Ketones Urine Negative (Negative); Leukocyte Esterase Urine Negative (Negative); Nitrate Urine Negative (Negative); Protein Urine Negative (Negative); Specific Gravity, Urine 1.005 (1.005-1.030); Urine Appearance Clear (CLEAR); Urine Color Yellow (Yellow); Urobilinogen Urine 0.2 mg/dL (Negative); pH Urine 7.5 (5-7)
[2025-01-01 23:45] LABS: Bacteria Urine None Seen /hpf; Hyaline Casts Urine 0-4 /lpf; RBC Urine 0-2 /hpf (0-2); Squamous Epithelial Cell Urine 0-5 /hpf (0-5); WBC Urine 0-5 /hpf (0-5)
[2025-01-01] MEDS: acetaminophen 325 mg Tablet 650 MG PO (23:46)
[2025-01-01] MEDS: diphenhydrAMINE 25 mg Capsule PO (23:46)
[2025-01-02] VITALS (8 sets, daily range): BP systolic 115–135; BP diastolic 68–87; PULSE 71–90; RESP 14–24; TEMP 36.5–37.1; O2SAT 98–99; BMI 24.5
[2025-01-02 00:16] LABS: Alanine Aminotransferase 264 U/L (0-41); Albumin Level 4.5 g/dL (3.5-5.2); Alkaline Phosphatase 62 U/L (40-130); Anion Gap 15.1 (5-19); Blood Urea Nitrogen 9 mg/dL (6-20); Calcium 8.8 mg/dL (8.5-10.5); Carbon Dioxide 28 mmol/L (22-29); Chloride 100 mmol/L (98-107); Creatinine Clr Calc Pharmacy 130.3492; Globulin 3.2 g/dL (1.3-4.6); Glomerular Filtration Rate 113.5 mL/min (90-130); Glucose 98 mg/dL (65-115); Magnesium 1.9 mg/dL (1.7-2.3); Osmolality Calculated 289 mOsm/kg (285-295); Phosphorus 2.6 mg/dL (2.5-4.5); Potassium 3.1 mmol/L (3.5-5.1); Sodium 140 mmol/L (136-145); Total Bilirubin 0.5 mg/dL (0.15-1.2); Total Protein 7.7 g/dL (6.6-8.7)
[2025-01-02 00:18] LABS: Creatinine Urine, Random 7 mg/dL (39-259); Microalbumin Random Urine 1 ug/dL (0-20)
[2025-01-02 00:41] LABS: Aspartate Amino Transferase 900 U/L (0-40)
[2025-01-02 00:41] LABS: Microalbum Creatinine Ratio Ur 143 mg/dL (0-20)
[2025-01-02 01:02] LABS: Creatine Phosphokinase > 32821 U/L (39-308)
[2025-01-02 01:34] LABS: Potassium, Radom Urine 5 mmol/L; Urine Random Chloride 117 mmol/L; Urine Random Sodium 125 mmol/L
[2025-01-02] MEDS: potassium chloride ER 20 mEq Tablet 40 MEQ PO ×2 (03:30→23:51)
[2025-01-02] MEDS: sodium bicarbonate 150 MEQ in dextrose 5% 1,000 ML 250 MEQ IV (03:32)
[2025-01-02 04:04] LABS: Hepatitis C Virus Antibody Non-Reactive (Nonreactive)
[2025-01-02 04:09] LABS: HIV 1 & 2 Antibody Non-Reactive (Non-Reactiv); HIV 1 & 2 Antigen Non-Reactive (Non-Reactiv)
[2025-01-02 04:59] LABS: Basophils % 0.3 %; Eosinophils % 0.5 %; Hematocrit 39.3 % (37-53); Lymphocytes % 30.9 %; Mean Corpuscular HGB Conc 36.1 g/dL (30-55); Mean Corpuscular Hemoglobin 32.3 pg (27-33); Mean Corpuscular Volume 89.3 fl (82-101); Mean Platelet Volume 9.8 fL (7.4-10.4); Monocytes % 15.5 %; Neutrophils % 52.5 %; Nucleated Red Blood Cells % 0 %; Platelet Count 233 10^3/cmm (157-399); Red Cell Distribution Width 11.2 % (12.1-15.1); White Blood Count 6.47 10^3/uL (3.29-11.43)
[2025-01-02 05:09] LABS: INR 0.99 (0.8-1.2)
[2025-01-02 05:10] LABS: Partial Thromboplastin Time 37.9 SECONDS (23.9-36.7)
[2025-01-02 05:20] LABS: Anion Gap 12.7 (5-19); Blood Urea Nitrogen 10 mg/dL (6-20); Calcium 8.8 mg/dL (8.5-10.5); Carbon Dioxide 29 mmol/L (22-29); Chloride 103 mmol/L (98-107); Creatinine Clr Calc Pharmacy 117.9913; Glomerular Filtration Rate 99.1 mL/min (90-130); Glucose 110 mg/dL (65-115); Osmolality Calculated 292 mOsm/kg (285-295); Phosphorus 3.4 mg/dL (2.5-4.5); Potassium 3.7 mmol/L (3.5-5.1); Sodium 141 mmol/L (136-145)
[2025-01-02] MEDS: famotidine 20 mg Tablet PO (06:06)
[2025-01-02 06:51] LABS: Creatine Phosphokinase > 23404 U/L (39-308)
--- NOTE | 2025-01-02 08:19 | PM.PN ---
Subjective Subjective: feels better. dec arm pain. no n/v/f/c/gramajo/d/sob Medications: Reviewed: Yes Medication Review Details: Current Medications Acetaminophen (Acetaminophen 325 Mg Tablet) 650 mg PO Q6H PRN PRN Reason: Mild/Mod Pain Or Temp >/= 101 Last Admin: 01/01/25 23:46 Dose: 650 mg Hydrocodone Bitart/Acetaminophen (Hydrocodone-Acetaminophen 5-325 Mg Tablet) 1 tab PO Q6H PRN PRN Reason: MODERATE PAIN Albuterol/Ipratropium (Ipratropium-Albuterol 3 Ml Neb) 3 ml INHALATION Q6H PRN PRN Reason: SHORTNESS OF BREATH Enoxaparin Sodium (Enoxaparin 40 Mg/0.4 Ml Syringe) 40 mg SUBCUT Q24H [facility] Last Admin: 01/01/25 22:28 Dose: 40 mg Famotidine (Famotidine 20 Mg Tablet) 20 mg PO QAM [facility] Last Admin: 01/02/25 06:06 Dose: 20 mg Sodium Bicarbonate 150 meq/ (Dextrose) 1,150 mls @ 250 mls/hr IV .Q4H36M [facility] Last Admin: 01/02/25 03:32 Dose: 250 mls/hr Potassium Phosphate 40 meq/ (Sodium Chloride) 109.0909 mls @ 27.25 mls/hr IV ONCE ONE Stop: 01/02/25 13:00 Loratadine (Loratadine 10 Mg Tablet) 10 mg PO DAILY [facility] Naloxone HCl (Naloxone 0.4 Mg/Ml Sdv) 0.1 mg IVP Q2M PRN PRN Reason: OPIATERV Ondansetron HCl (Ondansetron 4 Mg Tablet) 4 mg PO Q6H PRN PRN Reason: NAUSEA Ondansetron HCl (Ondansetron 2 Mg/Ml Sdv 2 Ml) 4 mg IVP Q6H PRN PRN Reason: vomiting, or N/V if npo Senna (Sennosides 8.6 Mg Tablet) 17.2 mg PO BEDTIME [facility] Last Admin: 01/01/25 22:29 Dose: 17.2 mg Vitals/I&O/Wt Last Vital Signs Temp 97.8 F 01/02/25 07:56 Pulse 79 01/02/25 07:56 Resp 17 01/02/25 07:56 BP 115/74 01/02/25 07:56 Pulse Ox 99 01/02/25 07:56 O2 Del Method Room Air 01/02/25 07:56 01/01/25 01/02/25 01/02/25 22:59 06:59 14:59 Intake Total 3370.833 / 3370.833 675 / 4045.833 Output Total 1075 / 1075 2975 / 4050 Balance 2295.833 / 2295.833 -2300 / -4.167 Weight last 48 hrs Weight 70.76 kg Weight 71.169 kg Weight 73.113 kg Weight 68.039 kg Physical Exam Narrative: VSS NARD in bed heent- nca/t, eomi neck supple lungs clear heart reg no rub abdomen soft, + bs ext no edema, dec tenderness in arms neuro a,a, o x3 Data 01/02/25 03:53 01/02/25 03:53 A&P Assessment and plan (1) Rhabdomyolysis: 29 year old man w/ rhabdomyolysis 1. rhabdomyolysis- assumed from sports. Rhabdomyolysis is characterized clinically by the triad of myalgias, muscle weakness, and red to brown urine due to myoglobinuria -pt had classic symptoms that appear to be improving -ut tox screen was negative -monitor for compartment syndrome -he denies using colchicine or statins -Acute viral infections associated with rhabdomyolysis include influenza A and B, coxsackievirus, Loretta-Sherwood, herpes simplex, parainfluenza, adenovirus, echovirus, HIV, and cytomegalovirus. The most common viral etiologies of rhabdomyolysis are influenza and HIV. viruses are so far negative -no clinical stmptoms of a virus -rhabdomyolysis in this case is likely due to exercise -Inflammatory myopathies, dermatomyositis and polymyositis can cause rhabdomyolysis recommendation- fluids, if not having UOP of 100 ml/hr then give lasix. check labs q 12 hrs await labs- serologies seen and examined using A/V equipment w/ aide of nurse pt consented to telehealth visit Plan see above PDMP PDMP Reviewed: Not Reviewed Attestations Medical Necessity Statement*: ivf needed for rhabdomyolysis- change to ns Time Spent in Patient Care: 16 - 35 minutes (>than 50% of time spent in counselling and/or direct pt care on unit). Coding Level of Care Code Acute Code for [facility] Diagnoses Rhabdomyolysis M62.82
--- NOTE | 2025-01-02 08:52 | USR_ITS ---
PROCEDURE INFORMATION: Exam: US Abdomen, Limited; Right Upper Quadrant Exam date and time: 01/02/2025 4:29 PM Age: 29 years old Clinical indication: Screening exam; Other: Cirrhosis/hepatitis; Additional info: Assess for hepatitis/cirrhosis, acutely elevated liver enzymes. Ast/alt > 900 TECHNIQUE: Imaging protocol: Real time ultrasound of the abdomen with image documentation. Limited exam focused on the right upper quadrant. COMPARISON: No relevant prior studies available. FINDINGS: Liver: Normal. No masses. Gallbladder: Normal. No gallstones. There is no gallbladder wall thickening. Biliary ducts: Normal. No stones. No dilation. Pancreas: Visualized pancreas is unremarkable. Right kidney: Normal. No mass. No hydronephrosis. US/US liver 19620 IMPRESSION: No acute findings.
[2025-01-02] MEDS: loratadine 10 mg Tablet PO (08:54)
[2025-01-02] MEDS: potassium phosphate (mEq K) 40 MEQ in sodium chloride 0.9% (100 ml) 100 ML 27.25 MEQ IV (08:54)
[2025-01-02] MEDS: sodium chloride 0.9% 1,000 ML 200 ML IV ×4 (08:54→23:54)
[2025-01-02 11:02] LABS: Troponin T (5th) Once < 6 ng/L (0-15)
[2025-01-02 11:03] LABS: Alcohol Level < 10 mg/dL (0-10); Lipase 19 U/L (13-60)
[2025-01-02 11:36] LABS: Hepatitis A Antibody IgM Non-Reactive (Nonreactive); Hepatitis B Core AB, Total Non-Reactive (Nonreactive); Hepatitis B Surface AB 12.6 (11.5-1000); Hepatitis B Surface Antigen Non-Reactive (Nonreactive); Hepatitis C Virus Antibody Non-Reactive (Nonreactive)
--- NOTE | 2025-01-02 14:18 | P.PN_ITS ---
Subjective 2 Subjective: Overnight labs and H&P reviewed. Patient admitted overnight with chief complaints of generalized muscle aches and pains, found to have rhabdomyolysis. States that his pain is improving today. Muscles feel less stiff. Urine is starting to clear up and regain its normal color. Medications: Reviewed: Yes Medication Review Details: Current Medications Acetaminophen (Acetaminophen 325 Mg Tablet) 650 mg PO Q6H PRN PRN Reason: Mild/Mod Pain Or Temp >/= 101 Last Admin: 01/01/25 23:46 Dose: 650 mg Hydrocodone Bitart/Acetaminophen (Hydrocodone-Acetaminophen 5-325 Mg Tablet) 1 tab PO Q6H PRN PRN Reason: MODERATE PAIN Albuterol/Ipratropium (Ipratropium-Albuterol 3 Ml Neb) 3 ml INHALATION Q6H PRN PRN Reason: SHORTNESS OF BREATH Enoxaparin Sodium (Enoxaparin 40 Mg/0.4 Ml Syringe) 40 mg SUBCUT Q24H [facility] Last Admin: 01/01/25 22:28 Dose: 40 mg Famotidine (Famotidine 20 Mg Tablet) 20 mg PO QAM [facility] Last Admin: 01/02/25 06:06 Dose: 20 mg Sodium Bicarbonate 150 meq/ (Dextrose) 1,150 mls @ 250 mls/hr IV .Q4H36M [facility] Last Admin: 01/02/25 03:32 Dose: 250 mls/hr Potassium Phosphate 40 meq/ (Sodium Chloride) 109.0909 mls @ 27.25 mls/hr IV ONCE ONE Stop: 01/02/25 13:00 Loratadine (Loratadine 10 Mg Tablet) 10 mg PO DAILY [facility] Naloxone HCl (Naloxone 0.4 Mg/Ml Sdv) 0.1 mg IVP Q2M PRN PRN Reason: OPIATERV Ondansetron HCl (Ondansetron 4 Mg Tablet) 4 mg PO Q6H PRN PRN Reason: NAUSEA Ondansetron HCl (Ondansetron 2 Mg/Ml Sdv 2 Ml) 4 mg IVP Q6H PRN PRN Reason: vomiting, or N/V if npo Senna (Sennosides 8.6 Mg Tablet) 17.2 mg PO BEDTIME [facility] Last Admin: 01/01/25 22:29 Dose: 17.2 mg Vitals/I&O/Wt Last Vital Signs Temp 97.8 F 01/02/25 12:00 Pulse 75 01/02/25 12:00 Resp 21 H 01/02/25 12:00 BP 118/79 01/02/25 12:00 Pulse Ox 99 01/02/25 12:00 O2 Del Method Room Air 01/02/25 12:00 01/01/25 01/02/25 01/02/25 22:59 06:59 14:59 Intake Total 3370.833 / 3370.833 675 / 4045.833 1259.0909 / 1259.0909 Output Total 1075 / 1075 2975 / 4050 1360 / 1360 Balance 2295.833 / 2295.833 -2300 / -4.167 -100.9091 / -100.9091 Weight last 48 hrs Weight 70.76 kg Weight 71.169 kg Weight 73.113 kg Weight 68.039 kg Physical Exam 2 Narrative: General: No acute distress, AO x3 HEENT: PERRLA, pupils bilaterally equal and reactive, pallors not present Chest: Normal vesicular breath sounds, no added sounds, equal good air entry bilaterally CVS: S1-S2 regular, no murmurs, no tachycardia, no gallops, no rubs Abdomen: Soft, nontender, no organomegaly, bowel sounds present Neuro: No focal deficits, no facial deformity, AO x3, power 5/5 in all limbs Data 01/02/25 03:53 01/02/25 03:53 A&P Assessment and plan (1) Exertional rhabdomyolysis: (2) Transaminitis: Plan Mau Lucero Sae is a 29 year old male w/ no past medical history who presents to the ED today 01/01/2025 w/ complaints of b/l arm & forearm pain, generalized weakness, dizziness, nausea, & brown/tea colored urine, after heavy exercise on 12/29/2024. The patient is being admitted for exertional rhabdomyolysis, [place] >[address]. # Severe Rhabdomyolysis - s/p 2L NS in the ED. Another 1L NS ordered on admission. - Nephrology consulted - involvement appreciated. F/u studies ordered by [employer]. - Per Nephrology recs, Lasix 20meq IV x 1 and continuous 150mEQ bicarb drip at 250cc/hr ordered. - Pain control w/ Acetamino #Transaminitis: likely due to ischemia from dehydration - Will monitor and order further studies as appropriate. #Possible seasonal Allergies - Benadryl x 1. Loratadine daily ordered. - I attemepted to evaluate his tympanic membranes b/l because given his complaint of a sore throat that resulted in R. sided ear pain whenever he swallowed, but the otoscope was not charged. DVT ppx: Lovenox January 02, 2025 Patient presenting yesterday with rhabdomyolysis. CK this morning at 23,000 from 37,000 previously. Troponin less than 6.AST ALT stable in the 900s today. Liver ultrasound has been added, as has hep A and hep B screening. Hep C screen noted to be negative. Obtain autoimmune panel with PA screen, dsDNA as already ordered. Check alcohol level, urine drug screen. Kidney function currently stable. HIV serology negative. Check respiratory viral panel. Patient states his muscles are starting to feel less stiff. No signs of compartment syndrome. Recheck creatinine and CK with a.m. labs. PDMP PDMP Reviewed: Not Reviewed Attestations 2 Medical Necessity Statement*: Continued admission for IV hydration, serial trending of CK. Coding Level of Care Code Acute Code for [facility] Diagnoses Exertional rhabdomyolysis M62.82 Transaminitis R74.01
[2025-01-02 17:25] LABS: Acetaminophen 5.9 ug/mL (10-30); Salicylate < 0.3 mg/dL (3-10)
[2025-01-02] MEDS: enoxaparin 40 mg/0.4 mL Syringe SUBCUT (20:09)
[2025-01-02 20:18] LABS: Adenovirus Not Detected (NOT DETECT); Chlamydia Pneumoniae Not Detected (NOT DETECT); Coronavirus 229E,HKU1,NL63,OC4 Not Detected (NOT DETECT); Human Metapneumovirus Not Detected (NOT DETECT); Human Rhinovirus/Enterovirus Not Detected (NOT DETECT); Influenza A Not Detected (NOT DETECT); Influenza A H1 Not Detected (NOT DETECT); Influenza A H1-2009 Not Detected (NOT DETECT); Influenza A H3 Not Detected (NOT DETECT); Influenza B Not Detected (NOT DETECT); Mycoplasma Pneumoniae Not Detected (NOT DETECT); Parainfluenza Virus Type 1 Not Detected (NOT DETECT); Parainfluenza Virus Type 2 Not Detected (NOT DETECT); Parainfluenza Virus Type 3 Not Detected (NOT DETECT); Parainfluenza Virus Type 4 Not Detected (NOT DETECT); Respiratory Syncytial Virus A Not Detected (NOT DETECT); Respiratory Syncytial Virus B Not Detected (NOT DETECT)
[2025-01-02 20:28] LABS: SARS-COV-2 Detected (NOT DETECT)
[2025-01-02 22:50] LABS: Alanine Aminotransferase 183 U/L (0-41); Albumin Level 3.7 g/dL (3.5-5.2); Alkaline Phosphatase 48 U/L (40-130); Blood Urea Nitrogen 7 mg/dL (6-20); Calcium 8.5 mg/dL (8.5-10.5); Carbon Dioxide 26 mmol/L (22-29); Chloride 104 mmol/L (98-107); Creatinine Clr Calc Pharmacy 132.4278; Globulin 2.4 g/dL (1.3-4.6); Glomerular Filtration Rate 113.5 mL/min (90-130); Glucose 115 mg/dL (65-115); Magnesium 1.9 mg/dL (1.7-2.3); Osmolality Calculated 287 mOsm/kg (285-295); Phosphorus 2.9 mg/dL (2.5-4.5); Sodium 139 mmol/L (136-145); Total Bilirubin 0.4 mg/dL (0.15-1.2); Total Protein 6.1 g/dL (6.6-8.7)
[2025-01-02 22:59] LABS: Anion Gap 12.5 (5-19); Aspartate Amino Transferase 445 U/L (0-40); Potassium 3.5 mmol/L (3.5-5.1)
[2025-01-02 23:09] LABS: Creatine Phosphokinase 13471 U/L (39-308)
[2025-01-02] MEDS: remdesivir 200 MG in sodium chloride 0.9% (100 ml) 60 ML 100 MG IV (23:49)
[2025-01-03] VITALS (11 sets, daily range): BP systolic 108–127; BP diastolic 68–74; PULSE 54–89; RESP 16–17; TEMP 36.7–36.8; O2SAT 97–99
[2025-01-03] MEDS: sodium chloride 0.9% 1,000 ML 200 ML IV ×2 (05:18→10:27)
[2025-01-03] MEDS: famotidine 20 mg Tablet PO (05:18)
[2025-01-03 05:40] LABS: Basophils % 0.7 %; Eosinophils # 0.1 10^3/uL (0.0-0.8); Eosinophils % 1.2 %; Hematocrit 41.5 % (37-53); Lymphocytes # 2.1 10^3/uL (0.8-4.8); Lymphocytes % 47.7 %; Mean Corpuscular HGB Conc 34.2 g/dL (30-55); Mean Corpuscular Hemoglobin 31.1 pg (27-33); Mean Corpuscular Volume 90.8 fl (82-101); Mean Platelet Volume 9.9 fL (7.4-10.4); Monocytes # 0.9 10^3/uL (0.2-0.9); Monocytes % 20.5 %; Neutrophils # 1.29 10^3/uL (1.8-7.7); Neutrophils % 29.7 %; Nucleated Red Blood Cells % 0 %; Platelet Count 208 10^3/cmm (157-399); Red Blood Count 4.57 10^6/uL (3.85-5.65); Red Cell Distribution Width 11.2 % (12.1-15.1); White Blood Count 4.34 10^3/uL (3.29-11.43)
[2025-01-03 05:59] LABS: Magnesium 1.9 mg/dL (1.7-2.3); Phosphorus 3.8 mg/dL (2.5-4.5)
[2025-01-03 06:03] LABS: Alanine Aminotransferase 171 U/L (0-41); Albumin Level 3.7 g/dL (3.5-5.2); Alkaline Phosphatase 50 U/L (40-130); Anion Gap 14.3 (5-19); Aspartate Amino Transferase 390 U/L (0-40); Blood Urea Nitrogen 5 mg/dL (6-20); Calcium 8.9 mg/dL (8.5-10.5); Carbon Dioxide 23 mmol/L (22-29); Chloride 106 mmol/L (98-107); Creatinine Clr Calc Pharmacy 161.9593; Globulin 2.6 g/dL (1.3-4.6); Glomerular Filtration Rate 132.4 mL/min (90-130); Glucose 92 mg/dL (65-115); Osmolality Calculated 285 mOsm/kg (285-295); Potassium 4.3 mmol/L (3.5-5.1); Sodium 139 mmol/L (136-145); Total Bilirubin 0.3 mg/dL (0.15-1.2); Total Protein 6.3 g/dL (6.6-8.7)
[2025-01-03 06:27] LABS: Creatine Phosphokinase 10598 U/L (39-308)
--- NOTE | 2025-01-03 07:57 | P.PN_ITS ---
Subjective 2 Subjective: Seen and examined feeling better. States that he had episodes of congestion and difficulty smelling. He is eating well and has good appetite.. Medications: Reviewed: Yes Medication Review Details: Current Medications Hydrocodone Bitart/Acetaminophen (Hydrocodone-Acetaminophen 5-325 Mg Tablet) 1 tab PO Q6H PRN PRN Reason: MODERATE PAIN Albuterol/Ipratropium (Ipratropium-Albuterol 3 Ml Neb) 3 ml INHALATION Q6H PRN PRN Reason: SHORTNESS OF BREATH Enoxaparin Sodium (Enoxaparin 40 Mg/0.4 Ml Syringe) 40 mg SUBCUT Q24H [facility] Last Admin: 01/02/25 20:09 Dose: 40 mg Famotidine (Famotidine 20 Mg Tablet) 20 mg PO QAM [facility] Last Admin: 01/03/25 05:18 Dose: 20 mg Sodium Chloride (Sodium Chloride 0.9%) 1,000 mls @ 200 mls/hr IV .Q5H [facility] Last Admin: 01/03/25 05:18 Dose: 200 mls/hr Remdesivir 100 mg/ Sodium (Chloride) 100 mls @ 100 mls/hr IV Q24H [facility] Stop: 01/06/25 18:59 Loratadine (Loratadine 10 Mg Tablet) 10 mg PO DAILY [facility] Last Admin: 01/02/25 08:54 Dose: 10 mg Naloxone HCl (Naloxone 0.4 Mg/Ml Sdv) 0.1 mg IVP Q2M PRN PRN Reason: OPIATERV Ondansetron HCl (Ondansetron 4 Mg Tablet) 4 mg PO Q6H PRN PRN Reason: NAUSEA Ondansetron HCl (Ondansetron 2 Mg/Ml Sdv 2 Ml) 4 mg IVP Q6H PRN PRN Reason: vomiting, or N/V if npo Senna (Sennosides 8.6 Mg Tablet) 17.2 mg PO BEDTIME [facility] Last Admin: 01/02/25 20:09 Dose: Not Given Vitals/I&O/Wt Last Vital Signs Temp 98.2 F 01/03/25 07:33 Pulse 65 01/03/25 07:33 Resp 16 01/03/25 07:33 BP 108/68 01/03/25 07:33 Pulse Ox 98 01/03/25 07:33 O2 Del Method Room Air 01/03/25 07:33 01/02/25 01/03/25 01/03/25 22:59 06:59 14:59 Intake Total 930 / 3189.0909 1733.333 / 4922.4239 Output Total 700 / 2060 Balance 230 / 1129.0909 1733.333 / 2862.4239 Weight last 48 hrs Weight 82.917 kg Weight 70.76 kg Weight 71.169 kg Weight 73.113 kg Weight 68.039 kg Physical Exam 2 Narrative: VSS NARD in bed heent- nca/t, eomi neck supple lungs clear heart reg no rub abdomen soft, + bs ext no edema, neuro a,a, o x3 Data 01/03/25 04:54 01/03/25 04:54 A&P Assessment and plan (1) Rhabdomyolysis: 29 year old man w/ rhabdomyolysis 1. rhabdomyolysis-likely from significant exercise earlier in the week in the setting of COVID-19. Continue IV fluids. CPK is improving. -ut tox screen was negative Serologies so far negative. Will continue IV fluids and monitoring. Treatment of COVID-19 as per hospitalist. seen and examined using A/V equipment w/ aide of nurse pt consented to telehealth visit Plan see above PDMP PDMP Reviewed: Not Reviewed Attestations 2 Medical Necessity Statement*: Rhabdomyolysis and COVID-19 viral infection. Time Spent in Patient Care: 16 - 35 minutes (>than 50% of time sp ent in counselling and/or direct pt care on unit) . Coding Level of Care Code Acute Code for [facility] Diagnoses Rhabdomyolysis M62.82
--- NOTE | 2025-01-03 08:32 | PC.NURSE ---
There is a discharge order in at this time for this patient however by verbal order given to me at this time by Dr. Olvera, Patient needs to stay until 2 o'clock and then repeat the CK and if it is below 10,000 he can discharge at 3 other escobar he ill need to stay.
[2025-01-03 08:39] LABS: Anti-streptolysin O 241 IU/mL (<200)
[2025-01-03] MEDS: loratadine 10 mg Tablet PO (08:55)
--- NOTE | 2025-01-03 11:39 | PC.NURSE ---
Messaged Dr. Olvera at 1037, again at 1137 for a diet order. Charge nurse is putting in a regular diet for patient. This nurses called dietary to please bring patient a regular tray. Has not had a diet order or meal from here since patient has been here.
[2025-01-03 15:01] LABS: Creatine Phosphokinase 7621 U/L (39-308)
--- NOTE | 2025-01-03 15:12 | PC.NURSE ---
Notified Dr. Olvera at 1502 of Critical CK 7,941. Waiting for Dr. Hill approval to be Discharged.
--- NOTE | 2025-01-03 16:18 | P.DS_ITS ---
Discharge Providers Date of Admission: 01/01/25 19:33 Date of Discharge: January 03, 2025 Attending Provider at Admission: Reema Hurst MD Attending Provider at Discharge: Camille Olvera MD Primary Care Provider: CARIE Hooker Diagnoses at Discharge Discharge Diagnosis (1) Rhabdomyolysis: Status: Acute Reason for Visit Reason for Visit: muscle extertion Hospital Course Hospital Course Mau Quevedo is a 29 year old male w/ no past medical history who presented to the ED on 01/01/2025 w/ complaints of b/l arm & forearm pain, generalized weakness, dizziness, nausea, & brown/tea colored urine, after heavy exercise on 12/29/2024. 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 He was found to have rhabdomyolysis upon arrival with CK elevated to greater than 37,000. He was admitted to the hospital in view of severe rhabdomyolysis and started treatment with IV fluids at 200 cc/h. His creatinine has remained within normal range during the course of admission. AST was elevated to greater than 900 upon admission, trending down to 390 at the time of discharge. ALT was elevated at 269, trending down to 171 at discharge. CK level was elevated at greater than 37,000 upon arrival, trended down to 7600 at discharge today.. There were no signs of compartment syndrome during the course of his admission. Patient has currently clinically improved. He has been ambulating in the room to the bathroom. He was found to be COVID-19 positive though did not have any estefanía respiratory symptoms. Most likely explanation for the rhabdomyolysis was heavy exercise in the setting of acute viral infection. Troponin was at less than 6, unlikely myocarditis. Patient received remdesivir 1 dose today. He is being discharged with recommendations to continue Paxlovid over the next 4 days to complete a course for COVID-19 acute infection. Instructed to drink plenty of fluids at discharge at least 2 to 2-1/2 L/day. Repeat labs have been ordered to be performed in 3 days at [email or web address]. Additionally follow-up appointment has been made with primary care provider ALLI meier on January 08, 2025. Patient is instructed not to engage in any heavy physical activity beyond his ADLs Work note was provided to take off work for the next 1 week at least. Autoimmune workup was additionally ordered, pending at the time of discharge, please follow-up with PCP on January 08, 2025 Physical Exam Narrative: General: No acute distress, AO x3 HEENT: PERRLA, pupils bilaterally equal and reactive, pallors not present Chest: Normal vesicular breath sounds, no added sounds, equal good air entry bilaterally CVS: S1-S2 regular, no murmurs, no tachycardia, no gallops, no rubs Abdomen: Soft, nontender, no organomegaly, bowel sounds present Neuro: No focal deficits, no facial deformity, AO x3, power 5/5 in all limbs Discharge Data Studies Completed and Pending Completed Studies During Hospitalization Category Date Time Status XR chest 1V portable [id number] Stat Exams 01/01/25 17:38 Completed US liver [id number] Routine Ultrasound 01/02/25 08:52 Completed Pending at discharge Category Date Time Status PA Screen w/ Reflex Routine Lab 01/01/25 21:53 Received ANTI SMOOTH [Smooth Muscle AB Screen w/Refl] Routine Lab 01/01/25 21:58 Received Anti Double Stranded DNA AB Routine Lab 01/01/25 21:58 Received Complete Blood Count w/Auto AM LABS Lab 01/04/25 04:00 Ordered Magnesium AM LABS Lab 01/04/25 04:00 Ordered Phosphorus AM LABS Lab 01/04/25 04:00 Ordered SS A Ro Sjogrens Antibody Routine Lab 01/01/25 21:58 Received SS-B/LA Antibody IGG Routine Lab 01/01/25 21:58 Received Urine Drug Monitoring Panel 1 Routine Lab 01/01/25 23:18 Received Radiology Impressions Chest X-Ray 01/01/25 17:38 IMPRESSION: No acute findings. Liver Ultrasound 01/02/25 08:52 IMPRESSION: No acute findings. Laboratory Results WBC 4.34 10^3/uL (3.29-11.43) 01/03/25 04:54 RBC 4.57 10^6/uL (3.85-5.65) 01/03/25 04:54 Hgb 14.20 g/dL (11.27-16.99) 01/03/25 04:54 Hct 41.5 % (37-53) 01/03/25 04:54 MCV 90.8 fl (82-101) 01/03/25 04:54 MCH 31.1 pg (27-33) 01/03/25 04:54 MCHC 34.2 g/dL (30-55) D 01/03/25 04:54 RDW 11.2 % (12.1-15.1) L 01/03/25 04:54 Plt Count 208 10^3/cmm (157-399) 01/03/25 04:54 MPV 9.9 fL (7.4-10.4) 01/03/25 04:54 Neut % (Auto) 29.7 % 01/03/25 04:54 Lymph % (Auto) 47.7 % 01/03/25 04:54 Glynn % (Auto) 20.5 % 01/03/25 04:54 Eos % (Auto) 1.2 % 01/03/25 04:54 Baso % (Auto) 0.7 % 01/03/25 04:54 Neut # (Auto) 1.29 10^3/uL (1.8-7.7) L 01/03/25 04:54 Lymph # (Auto) 2.1 10^3/uL (0.8-4.8) 01/03/25 04:54 Glynn # (Auto) 0.9 10^3/uL (0.2-0.9) 01/03/25 04:54 Eos # (Auto) 0.1 10^3/uL (0.0-0.8) 01/03/25 04:54 Baso # (Auto) 0.0 10^3/uL (0.0-0.1) 01/03/25 04:54 Nucleated RBC % (auto) 0 % 01/03/25 04:54 Nucleated RBCs # 0.0 /100WBC 01/03/25 04:54 PT 13.80 SECONDS (12.1-14.9) 01/02/25 03:53 INR 0.99 (0.8-1.2) 01/02/25 03:53 APTT 37.9 SECONDS (23.9-36.7) H 01/02/25 03:53 Sodium 139 mmol/L (136-145) 01/03/25 04:54 Potassium 4.3 mmol/L (3.5-5.1) 01/03/25 04:54 Chloride 106 mmol/L (98-107) 01/03/25 04:54 Carbon Dioxide 23 mmol/L (22-29) 01/03/25 04:54 Anion Gap 14.3 (5-19) 01/03/25 04:54 BUN 5 mg/dL (6-20) L 01/03/25 04:54 Creatinine 0.7 mg/dL (0.7-1.2) 01/03/25 04:54 GFR Calculation 132.4 mL/min (90-130) H 01/03/25 04:54 Glucose 92 mg/dL (65-115) 01/03/25 04:54 Calculated Osmolality 285 mOsm/kg (285-295) 01/03/25 04:54 Calcium 8.9 mg/dL (8.5-10.5) 01/03/25 04:54 Phosphorus 3.8 mg/dL (2.5-4.5) 01/03/25 04:54 Magnesium 1.9 mg/dL (1.7-2.3) 01/03/25 04:54 Total Bilirubin 0.3 mg/dL (0.15-1.2) 01/03/25 04:54 AST 390 U/L (0-40) H 01/03/25 04:54 ALT 171 U/L (0-41) H 01/03/25 04:54 Alkaline Phosphatase 50 U/L (40-130) 01/03/25 04:54 Creatine Kinase 7621 U/L (39-308) H* 01/03/25 14:21 Troponin T 5th Gen ng/L < 6 ng/L (0-15) 01/02/25 10:20 Total Protein 6.3 g/dL (6.6-8.7) L 01/03/25 04:54 Albumin 3.7 g/dL (3.5-5.2) 01/03/25 04:54 Globulin 2.6 g/dL (1.3-4.6) 01/03/25 04:54 Lipase 19 U/L (13-60) 01/02/25 10:20 Urine Color Yellow (Yellow) 01/01/25 23:18 Urine Appearance Clear (CLEAR) 01/01/25 23:18 Urine pH 7.5 (5-7) 01/01/25 23:18 Ur Specific [place] 1.005 (1.005-1.030) 01/01/25 23:18 Urine Protein Negative (Negative) 01/01/25 23:18 Urine Glucose (UA) Negative (Normal) 01/01/25 23:18 Urine Ketones Negative (Negative) 01/01/25 23:18 Urine Blood Negative (Negative) 01/01/25 23:18 Urine Nitrate Negative (Negative) 01/01/25 23:18 Urine Bilirubin Negative (Negative) 01/01/25 23:18 Urine Urobilinogen 0.2 mg/dL (Negative) 01/01/25 23:18 Ur Leukocyte Esterase Negative (Negative) 01/01/25 23:18 Urine RBC 0-2 /hpf (0-2) 01/01/25 23:18 Urine WBC 0-5 /hpf (0-5) 01/01/25 23:18 Ur Squamous Epith Cells 0-5 /hpf (0-5) 01/01/25 23:18 Amorphous Sediment Not Reportable 01/01/25 23:18 Urine Bacteria None seen /hpf (NONE) 01/01/25 23:18 Hyaline Casts 0-4 /lpf H 01/01/25 23:18 Urine Mucus None /hpf 01/01/25 17:31 Ur Random Microalbumin 1 ug/dL (0-20) 01/01/25 23:18 Ur Random Sodium 125 mmol/L 01/01/25 23:18 Ur Random Potassium 5 mmol/L 01/01/25 23:18 Ur Random Chloride 117 mmol/L 01/01/25 23:18 Urine Creatinine 7 mg/dL (39-259) L 01/01/25 23:18 Microalb/Creat Ratio 143 mg/dL (0-20) H 01/01/25 23:18 Salicylates < 0.3 mg/dL (3-10) L 01/02/25 10:20 Urine Opiates Screen Negative ng/mL (Negative) 01/01/25 17:31 Acetaminophen 5.9 ug/mL (10-30) L 01/02/25 10:20 Ur Barbiturates Screen Negative ng/mL (Negative) 01/01/25 17:31 Ur Phencyclidine Scrn Negative ng/mL (Negative) 01/01/25 17:31 Ur Amphetamines Screen Negative ng/mL (Negative) 01/01/25 17:31 U Benzodiazepines Scrn Negative ng/mL (Negative) 01/01/25 17:31 Urine Cocaine Screen Negative ng/mL (Negative) 01/01/25 17:31 U Marijuana (THC) Screen Negative ng/mL (Negative) 01/01/25 17:31 Ethyl Alcohol < 10 mg/dL (0-10) 01/02/25 10:20 Adenovirus (PCR) Not detected (NOT DETECT) 01/02/25 18:11 C. pneumoniae DNA (PCR) Not detected (NOT DETECT) 01/02/25 18:11 Coronavirus 229E (PCR) Not detected (NOT DETECT) 01/02/25 18:11 Hepatitis A IgM Ab Non-reactive (Nonreactive) 01/02/25 10:20 Hep Bs Antigen Non-reactive (Nonreactive) 01/02/25 10:20 Hep Bs Antibody 12.6 (11.5-1000) 01/02/25 10:20 Hep B Core Total Ab Non-reactive (Nonreactive) 01/02/25 10:20 Hepatitis C Antibody Non-reactive (Nonreactive) 01/02/25 10:20 HIV 1&2 Ab & HIV 1 Ag Non-reactive (Non-Reactiv) 01/01/25 23:40 HIV 1&2 Antibody Non-reactive (Non-Reactiv) 01/01/25 23:40 Human Metapneumovir PCR Not detected (NOT DETECT) 01/02/25 18:11 Influenza A (H1) PCR Not detected (NOT DETECT) 01/02/25 18:11 Influ A (H1/09) PCR Not detected (NOT DETECT) 01/02/25 18:11 Influenza A (H3) PCR Not detected (NOT DETECT) 01/02/25 18:11 Influenza Type A (PCR) Not detected (NOT DETECT) 01/02/25 18:11 Influenza Type B (PCR) Not detected (NOT DETECT) 01/02/25 18:11 M. pneumoniae (PCR) Not detected (NOT DETECT) 01/02/25 18:11 Parainfluenza 1 (PCR) Not detected (NOT DETECT) 01/02/25 18:11 Parainfluenza 2 (PCR) Not detected (NOT DETECT) 01/02/25 18:11 Parainfluenza 3 (PCR) Not detected (NOT DETECT) 01/02/25 18:11 Parainfluenza 4 (PCR) Not detected (NOT DETECT) 01/02/25 18:11 RSV Type A (PCR) Not detected (NOT DETECT) 01/02/25 18:11 RSV Type B (PCR) Not detected (NOT DETECT) 01/02/25 18:11 Entero/Rhino (PCR) Not detected (NOT DETECT) 01/02/25 18:11 SARS-CoV-2 (PCR) Detected (NOT DETECT) A 01/02/25 18:11 Anti-Streptolysin O Ab 241 IU/mL (<200) H 01/02/25 10:20 Vitals Last Vital Signs Temp 98.1 F 01/03/25 12:10 Pulse 67 01/03/25 12:10 Resp 17 01/03/25 12:10 BP 127/74 01/03/25 12:10 Pulse Ox 99 01/03/25 11:43 O2 Del Method Room Air 01/03/25 11:43 Discharge Plan Discharge Patient Disposition: Home Condition: Stable Prescriptions: New Paxlovid 300 mg (150 mg x 2)-100 mg tablets,dose pack See Rx Instructions .ROUTE .COMPLEX Qty: 30 0RF Rx Instructions: take TWO 150 mg tablets of nirmatrelvir with ONE 100 mg tablet of ritonavir twice daily for 5 days Continued albuterol sulfate 90 mcg/actuation HFA aerosol inhaler 1 puff INHALATION Q4H Discharge Orders: Discharge Order (Routine); Ordered 01/03/25 Ordered By: Camille Olvera Other Ambulatory Orders: Creatine Phosphokinase (Routine) Timeframe: 3 Days Facility: [facility] - Location: Lab - Main Lab Ordered By: Camille Olvera Comprehensive Metabolic Panel (Routine) Timeframe: 3 Days Facility: [facility] - Location: Lab - Main Lab Ordered By: Camille Olvera Referrals: ALLI Meier, DIGITAL PUBLISHING SPECIALIST [Primary Care Provider, Family Practice] - 01/08/25 11:30 am Discharge Diet: As Directed Discharge Activity: Resume usual activity Patient Instructions: Nirmatrelvir/Ritonavir (By mouth) (Paxlovid), Rhabdomyolysis (DC), COVID-19 (Coronavirus Disease 2019) (DC) Activity Restrictions/Additional Instructions: 1. Hydration: * Drink plenty of fluids, especially water, to flush out muscle breakdown products and prevent kidney damage.? * Avoid alcohol, as it can dehydrate the body and interfere with kidney f unction.? 2. Activity: * Avoid strenuous physical activity, including exercise, until your doctor advises it's safe to resume.? * Rest and allow your muscles to recover.? 3. Medication: * Follow your doctor's instructions regarding any prescribed medications, including pain relievers or medications to address electrolyte imbalances.? * Avoid nephrotoxic medications (medications that can damage the kidneys) unless your doctor specifically advises otherwise.? 4. Follow-up: * Make and attend all follow-up appointments with your doctor.? * Monitor your urine for any changes in color, clarity, or frequency.? 5. When to Seek Medical Attention:? * Contact your doctor or seek immediate medical care if you experience any of the following: * New or worsening muscle pain. * Reduced urine output or no urine. * New swelling in your arms or feet. * Blood in your urine. * Dark or tea-colored urine. Discharge Attestations Time Spent in Discharge Care*: greater than 30 min Quality Metrics Clinical Quality Measures [ No reported AMI, CVA or VTE this stay] Coding Level of Care Code Acute Code for [facility] Diagnoses Rhabdomyolysis M62.82
--- NOTE | 2025-01-03 17:22 | PC.NURSE ---
Walked patient out in [place]. Patient tolerated walking very well with no dizziness, nausea or headache. Stated feels good to get out of the bed.
--- NOTE | 2025-01-03 17:23 | PC.NURSE ---
Discussed discharge with patient and spouse. Discussed activity restriction, new medications, continued medication and follow up appointments. Verbalized understanding by both patient and spouse. Medications sent to the [facility] pharmacy in [place].
[2025-01-05 15:24] LABS: Anti-Double Strand DNA AB <1 IU/mL; SS A Ro Sjogrens Antibody <1.0 NEG AI (<1.0 NEG); SS-B/LA IGG <1.0 NEG AI (<1.0 NEG)
== END 2025-01-03 17:10 | disposition home or self-care (01) | DRG 557 ==
LOC: ER 19:36 → CSU 19:47 → MEDSURG 01-02 18:25
PROVIDERS: Family Medicine; Internal Medicine Nephrology; Admitting Provider Internal Medicine; Emergency Provider Emergency Medicine; PCP Nurse Practitioner Family; Visit Provider Student in an Organized Health Care Education/Training Program
DX: M62.82 Rhabdomyolysis (principal); U07.1 COVID-19; R05.3 Chronic cough; K52.9 Noninfective gastroenteritis and colitis, unspecified; R74.01 Elevation of levels of liver transaminase levels
CPT/HCPCS: 36415; 71045; 76705; 80048; 80053; 80306; 80307; 81001; 82044; 82436; 82550; 83516; 83690; 83735; 84100; 84133; 84300; 84484; 85025; 85610; 85730; 86038; 86060; 86225; 86235; 86705; 86706; 86709; 86803; 87340; 87486; 87581; 87633; 87806; 93005; 96360; 96361; 96372; 96376; 99285; A9270; J0248; J1650; J1940; J7030; J7070; J9999

== ENCOUNTER → 2025-01-08 12:39 | Outpatient (BNVA) | payer OTHER, SELFPAY | PROVIDERS: PCP Nurse Practitioner Family; Visit Provider Nurse Practitioner Family | DX: M62.82 Rhabdomyolysis (principal); Z79.899 Other long term (current) drug therapy | CPT/HCPCS: 80053; 81003; 82550 ==

== ENCOUNTER → 2025-01-23 12:13 | Outpatient (BNVA) | payer OTHER, SELFPAY | PROVIDERS: PCP Nurse Practitioner Family; Visit Provider Nurse Practitioner Family | DX: M62.82 Rhabdomyolysis (principal); N15.9 Renal tubulo-interstitial disease, unspecified; N20.0 Calculus of kidney; Z79.899 Other long term (current) drug therapy; E55.9 Vitamin D deficiency, unspecified | CPT/HCPCS: 74018; 80053; 80061; 81003; 82306; 82550; 83036; 84443; 85025 ==